=== PATIENT | male | born 1975 | race Caucasian/White ===

== ENCOUNTER 2018-02-10 13:23 | Emergency (ER) | payer SELFPAY ==
[~2018-02-10 13:23] MED LIST: AMO500 PO; BACDS PO; DEXT10SY2 PO; DOXY-179 PO; FLUT16SP20 NS; GUALA600 PO; PHEN120S16 PO; PRE20 PO
--- NOTE | 2018-02-10 13:27 | ER Report ---
History and Physical Time Seen By MD: 13:27 HPI/ROS CHIEF COMPLAINT: Sore throat, fevers, general malaise. HISTORY OF PRESENT ILLNESS: Patient is a 42-year-old male here with complaints of sore throat, odynophagia, fevers, myalgias for the past 2 days. Patient reports that he also has otalgia with no hearing loss. Patient is afebrile hemodynamically stable at time of evaluation with significant posterior oropharyngeal swelling and exudates. Patient is fully vaccinated. REVIEW OF SYSTEMS: Constitutional: + fever, + chills. Eyes: No discharge. ENT: + sore throat, + otalgia, Cardiovascular: No chest pain, no palpitations. Respiratory: No cough, no shortness of breath. Gastrointestinal: No abdominal pain, no vomiting. Genitourinary: No hematuria. Musculoskeletal: No back pain. Skin: No rashes. Neurological: + headache. Allergies: Coded Allergies: No Known Drug Allergies (Verified , 02/10/18) Home Meds Active Scripts Tramadol Hcl (TRAMADOL HCL) 50 Mg Tablet, 50 MG PO Q6H PRN for PAIN, #6 TAB 0 Refills Prov:TYRA KEARNS DO 02/10/18 Discontinued Reported Medications Doxycycline Hyclate (Doxycycline Hyclate) 100 Mg Tablet, 100 MG PO BID, #14 0 Refills 03/12/11 Phenylephrine Hcl/Cod/Prometh (Phenergan Vc/Cod Syrup) 120 Ml Syrup, 120 ML PO, 0 Refills 03/12/11 Guaifenesin (Guaifenesin) 600 Mg Tabcr, 600 MG PO BID, 0 Refills 03/12/11 [None] No Conflict Check, 0 Refills 02/28/11 Hx Smoking: Yes (1 PACK DAILY) Hx Substance Use Disorder: No Hx Alcohol Use: Yes (OCC) Constitutional Vital Sign - Last 24 Hours 02/10/18 02/10/18 13:30 14:40 Temp 99.0 Pulse 95 82 Resp 16 B/P (MAP) 154/92 148/82 (104) Pulse Ox 94 O2 Delivery Room Air Physical Exam General Appearance: The patient is alert, has no immediate need for airway protection and no signs of toxicity. Mild distress secondary to pain Eyes: Pupils equal and round no pallor or injection. ENT, Mouth: + Significant posterior oropharyngeal edema bilaterally with exudates present Respiratory: There are no retractions, lungs are clear to auscultation. Cardiovascular: Regular rate and rhythm. Gastrointestinal: Abdomen is soft and non tender, no masses, bowel sounds normal. Neurological: No focal neurological deficits Skin: Warm and dry, no rashes. Musculoskeletal: Neck is supple and significant for tender cervical lymphadenopathy Extremities are nontender, nonswollen and have full range of motion. DIFFERENTIAL DIAGNOSIS: After history and physical exam differential diagnosis was considered for a viral, bacterial pharyngitis, mononucleosis, strep throat Medical Decision Making Data Points Laboratory Hematology Test 02/10/18 13:38 Group A Streptococcus Screen Negative (NEGATIVE) Chemistry Test 02/10/18 13:38 Group A Streptococcus Screen Negative (NEGATIVE) ED Course/Re-evaluation ED Course Patient is a 42-year-old male here with complaints of sore throat with no signs of difficulty swallowing, difficulty breathing. He reports a 2 day history of worsening sore throat, cervical lymphadenopathy. Patient denies cough, chest pains, abdominal pains, nausea, vomiting. Tympanic membranes were noninfectious on exam. Rapid strep test was completed due to the patient's physical exam findings and was found to be negative. Due to the patient's significant posterior oropharyngeal swelling, Decadron was given 4 symptomatic relief. Patient was also given a dose of Magic mouthwash for symptom management. Patient was advised to continue nonsteroidal anti-inflammatory therapy and he was given a prescription for tramadol for symptom management. He is also advised to use topical anesthetics such as lozenges or sprays as needed. Patient was advised to follow up with PCP in the next several days. Decision to Disposition Date: Feb 10, 2018 Decision to Disposition Time: 14:30 Depart Departure Latest Vital Signs Vital Signs Date Time Temp Pulse Resp B/P (MAP) Pulse Ox O2 Delivery O2 Flow Rate FiO2 02/10/18 14:40 82 148/82 (104) 02/10/18 13:30 99.0 16 94 Room Air Impression: Primary Impression: Pharyngitis Condition: Improved Disposition: HOME OR SELF-CARE New Scripts Tramadol Hcl (TRAMADOL HCL) 50 Mg Tablet 50 MG PO Q6H PRN for PAIN, #6 TAB 0 Refills Prov: TYRA KEARNS DO 02/10/18 Patient Instructions: Pharyngitis (ED) Additional Instructions: You were diagnosed with pharyngitis. Your strep test was found to be negative. Your pharyngitis is likely caused by a viral illness. This illness should resolve in approximately one week. Please take anti-inflammatory such as naproxen 500 mg twice daily or ibuprofen 800 mg up to 4 times a day. You may take 1 tramadol every 6-8 hours as needed for breakthrough pain control. Please do not drive while taking this medication as it may make you drowsy. You may also use topical pain medication such as lozenges or sprays. Please drink plenty of water. Please return if you develop worsening swelling, worsening pain, high fevers, shortness of breath. Please follow-up with your family doctor in the next 3 days. TYRA KEARNS DO Feb 10, 2018 13:27
[2018-02-10] MEDS ORDERED: DEXAMETHASONE SOD PHOS 10MG/ML IM ONE (14:10)
[2018-02-10] MEDS ORDERED: MAGIC MOUTHWASH PO ONE (14:15)
[2018-02-10] MEDS ORDERED: TRAM-420 PO (14:23)
[2018-02-10] MEDS ORDERED: MAG HYD/AL HYD/SIMETH 30ML UDC PO ONE ×2 (14:30→14:35)
[2018-02-10] MEDS ORDERED: LIDOCAINE 2% VISC SLN 15ML UDC PO ONE (14:35)
[2018-02-10 14:40] VITALS: BP 148/82
== END 2018-02-10 14:44 | disposition home or self-care (01) ==
LOC: ER 13:34
DX: J02.9 Acute pharyngitis, unspecified (principal)
CPT/HCPCS: 87081; 87880; 96372; 99283; J1100